=== PATIENT | female | born 1960 | race African-American/Black ===

== ENCOUNTER 2017-01-14 20:16 | Inpatient (IN) | payer OTHER ==
[~2017-01-14] VITALS: Ht 160 cm; Wt 65.8 kg
[~2017-01-14 20:16] MED LIST: ASPI81TA9 PO; HYDR-2762 PO; OMEP20TA PO
--- NOTE | 2017-01-14 20:54 | PHYS DOC ---
Past Medical History Past Medical History: Sciatica Past Surgical History: Hip Replacement Alcohol Use: Occasionally Drug Use: None Adult General Chief Complaint Chief Complaint: SHOULDER INJURY HPI HPI Patient is a 56 year old female with history of sciatica who presents with right upper extremity pain that began today after she fell. Patient states she had drunk 3 beers in 2 shots when she fell. She states she has history of sciatica and her left leg usually gives out which it did today. Review of Systems Review of Systems Constitutional: Denies fever or chills [] Eyes: Denies change in visual acuity, redness, or eye pain [] HENT: Denies nasal congestion or sore throat [] Respiratory: Denies cough or shortness of breath [] Cardiovascular: No additional information not addressed in HPI [] GI: Denies abdominal pain, nausea, vomiting, bloody stools or diarrhea [] : Denies dysuria or hematuria [] Musculoskeletal: Right upper extremity pain Integument: Denies rash or skin lesions [] Neurologic: Denies headache, focal weakness or sensory changes [] Endocrine: Denies polyuria or polydipsia [] Current Medications Current Medications Current Medications Medications (Trade) Dose Ordered Sig/Surjit Start Time Stop Time Status Last Admin Dose Admin Ketorolac Tromethamine (Toradol Im) 60 mg 1X ONCE 01/14/17 21:00 01/14/17 21:01 Cancel Allergies Allergies Allergies Coded Allergies Type Severity Reaction Last Updated Verified codeine Allergy Mild Rash 08/31/15 Yes Physical Exam Physical Exam Constitutional: Well developed, well nourished, no acute distress, non-toxic appearance. [] HENT: Normocephalic, atraumatic, bilateral external ears normal, oropharynx moist, no oral exudates, nose normal. [] Eyes: PERRLA, EOMI, conjunctiva normal, no discharge. [] Neck: Normal range of motion, no tenderness, supple, no stridor. [] Cardiovascular:Heart rate regular rhythm, no murmur [] Lungs & Thorax: Bilateral breath sounds clear to auscultation [] Abdomen: Bowel sounds normal, soft, no tenderness, no masses, no pulsatile masses. [] Skin: Warm, dry, no erythema, no rash. [] Back: No tenderness, no CVA tenderness. [] Extremities: Right shoulder appears obviously deformed. Crackly sounds could be heard when I palpated the shoulder. Patient unable to take the shoulder through any range of motion. +2 right radial pulse. Diffuse tenderness to the right forearm and hand. Limited range of motion to the forearm and hand due to pain. Adequate ulnar medial and radial sensation to the forearm and hand. Neurologic: Alert and oriented X 3, normal motor function, normal sensory function, no focal deficits noted. [] Psychologic: Affect normal, judgement normal, mood normal. [] Patient appears intoxicated. Current Patient Data Vital Signs Vital Signs Date Time Temp Pulse Resp B/P Pulse Ox O2 Delivery O2 Flow Rate FiO2 01/14/17 20:25 97.7 68 16 110/61 97 Room Air 97.7 EKG EKG [] Radiology/Procedures Radiology/Procedures []PROCEDURE Right shoulder two views HISTORY fall on shoulder, pain TECHNIQUE AP and Y-views were taken of the right shoulder COMPARISON None FINDINGS There is a displaced fracture of the surgical neck of the proximal humerus. There is rotation of the humeral head relative to the shaft and medial displacement of the shaft relative to the humeral head. The head is still in normal relationship to the glenoid. IMPRESSION 1. Displaced angulated fracture proximal right humerus. Electronically signed by: Italo Will MD (Jan 14, 2017 21:39:46) DICTATED and SIGNED BY: ITALO WILL MD DATE: 01/14/172138 CC: ELLYN LEYVA MD; JATIN ERAZO APRN ~ Course & Med Decision Making Course & Med Decision Making Pertinent Labs and Imaging studies reviewed. (See chart for details) Patient is in the ED with right upper extremity pain after falling. She had drunk 3 bottles of beer and 2 shots of hard liquor when she fell. She appears intoxicated right now. Her shoulder appears deformed. X-ray of the right humerus as interpreted by radiologist was noted for a displaced angulated fracture of proximal right humerus. X-rays of the right hand, forearm xrays interpreted by Dr. Pringle are negative for any acute findings. 21:[address] Briggs and she was admitted 21:[address] Fraire and he will f/u with patient inpatient. CT of the head is negative. Dragon Disclaimer Dragon Disclaimer This electronic medical record was generated, in whole or in part, using a voice recognition dictation system. Departure Departure Impression: Primary Impression: Fall Additional Impressions: Right humeral fracture ETOH abuse Disposition: 09 ADMITTED INPATIENT Admitting Physician: Eliz Briggs Referrals: ELLYN LEYVA MD (PCP) Problem Qualifiers Primary Impression: Fall Encounter type: initial encounter Qualified Code: W19.XXXA - Unspecified fall, initial encounter Additional Impressions: Right humeral fracture Encounter type: initial encounter Humerus Location: surgical neck Fracture type: closed Fracture morphology: unspecified fracture morphology Fracture alignment: displaced Qualified Code: S42.211A - Unspecified displaced fracture of surgical neck of right humerus, initial encounter for closed fracture JATIN ERAZO STAFF ACCOUNTANT Jan 14, 2017 20:54
[2017-01-14] MEDS ORDERED: KETOROLAC TROMETHAMINE 60 MG/2 ML INJ. IM ONE (21:00)
--- NOTE | 2017-01-14 21:41 | RAD ---
PROCEDURE Right shoulder two views HISTORY fall on shoulder, pain TECHNIQUE AP and Y-views were taken of the right shoulder COMPARISON None FINDINGS There is a displaced fracture of the surgical neck of the proximal humerus. There is rotation of the humeral head relative to the shaft and medial displacement of the shaft relative to the humeral head. The head is still in normal relationship to the glenoid. IMPRESSION 1. Displaced angulated fracture proximal right humerus. Electronically signed by: Italo Will MD (Jan 14, 2017 21:39:46)
[2017-01-14] MEDS ORDERED: FENTANYL PF 100 MCG/2 ML VIAL. IV ONE (22:00)
[2017-01-14] MEDS ORDERED: ONDANSETRON PF 4 MG/2 ML VIAL. IV PRN (22:15)
--- NOTE | 2017-01-14 22:22 | RAD ---
PROCEDURE CT brain without contrast. HISTORY pain after fall to head TECHNIQUE Axial CT images were obtained through the brain. One or more of the following individualized dose reduction techniques were utilized for this examination: 1. Automated exposure control; 2. Adjustment of the mA and/or kV according to patient size; 3. Use of iterative reconstruction technique.One or more of the following individualized dose reduction techniques were utilized for this examination: 1. Automated exposure control; 2. Adjustment of the mA and/or kV according to patient size; 3. Use of iterative reconstruction technique. COMPARISON None FINDINGS There is no intracranial hemorrhage or subdural hematoma. Ventricles are normal in size. There is no mass or shift of the midline. A skull fracture is not evident. Sinuses are clear. IMPRESSION 1. No intracranial hemorrhage or acute finding noted. Electronically signed by: Italo Will MD (Jan 14, 2017 22:20:55)
[2017-01-14 22:29] LABS: BILIRUBIN,URINE NEGATIVE (NEG); GLUCOSE,URINE NEGATIVE (NEG); NITRITE,URINE NEGATIVE (NEG); PH,URINE 5.5; PROTEIN,URINE NEGATIVE (NEG-TRACE); UROBILINOGEN,URINE 0.2 mg/dL (0.2 mg/dL)
[2017-01-14] MEDS ORDERED: LORAZEPAM 2 MG/ML VIAL. IV PRN ×2 (22:30)
[2017-01-14] MEDS ORDERED: IV NORMAL SALINE 1000ML BAG 1,000 ML IV ONE (22:30)
[2017-01-14] MEDS ORDERED: CLONIDINE HCL 0.1 MG TABLET PO PRN (22:30)
[2017-01-14] MEDS ORDERED: MULTIVIT INFUSN,ADULT 4,VIT K 10 ML, FOLIC ACID 1 MG, THIAMINE 100 MG in IV DEXTROSE 5 ... IV ONE (22:30)
[2017-01-14 22:35] LABS: BARBITURATES NEG (NEG); BENZODIAZEPINES NEG (NEG); CANNABINOIDS NEG (NEG); COCAINE NEG (NEG); METHADONE NEG (NEG); OPIATES NEG (NEG); PHENCYCLIDINE NEG (NEG)
[2017-01-14 22:38] LABS: BACTERIA,URINE MOD /HPF (0-FEW); RBC,URINE OCC /HPF (0-2); SQUAMOUS EPITHELIAL CELL,UR MOD /LPF
[2017-01-14 22:42] LABS: ETHANOL, URINE POS (NEG)
[2017-01-14 22:46] LABS: BASO % 0 % (0-3); EOS % 0 % (0-3); HEMATOCRIT 40.8 % (36.0-47.0); HEMOGLOBIN 13.4 g/dL (12.0-15.5); LYMPH # 1.2 x10^3/uL (1.0-4.8); LYMPH % 20 % (24-48); MEAN CORPUSCULAR HEMOGLOBIN 32 pg (25-35); MEAN CORPUSCULAR HGB CONC 33 g/dL (31-37); MEAN CORPUSCULAR VOLUME 99 fL (79-100); MONO % 4 % (0-9); NEUT % 76 % (31-73); PLATELET COUNT 154 x10^3/uL (140-400); RED BLOOD COUNT 4.12 x10^6/uL (3.50-5.40); RED CELL DISTRIBUTION WIDTH 13.5 % (11.5-14.5); WHITE BLOOD COUNT 6.2 x10^3/uL (4.0-11.0)
[2017-01-14 22:53] LABS: PROTHROMBIN TIME PATIENT 12.6 SEC (11.7-14.0)
[2017-01-14] MEDS: FENTANYL PF 100 MCG/2 ML VIAL. IV PRN ×2 (22:57→23:59)
[2017-01-14 23:02] LABS: CREATININE 0.6 mg/dL (0.6-1.0); GFR 124.7; POTASSIUM 3.1 mmol/L (3.5-5.1)
[2017-01-14 23:06] LABS: ALBUMIN 4.2 g/dL (3.4-5.0); ALBUMIN/GLOBULIN RATIO 1.3 (1.0-1.7); TOTAL BILIRUBIN 0.4 mg/dL (0.2-1.0); TOTAL PROTEIN 7.5 g/dL (6.4-8.2)
[2017-01-14 23:40] VITALS: BP 114/60
[2017-01-15] VITALS (9 sets, daily range): BP systolic 105–149; BP diastolic 42–77
--- NOTE | 2017-01-15 00:20 | ACF ---
Admission Forms Criteria MUSCULOSKELETAL DISEASE GRG Clinical Indications for Admission to Inpatient Care (Place 'X' for any and all applicable criteria): Hospital admission is needed for appropriate care of the patient because of 1 or more of the following: [X]I. Fracture, dislocation, or other musculoskeletal injury requiring inpatient care(medical) as indicated by 1 or more of the following(4)(5)(6)(7) [ ]a) Vertebral fracture requiring observation for instability or neurologic compromise (8) [ ]b) Compartment syndrome (proven or cannot be ruled out during observation level of care) (9) [ ]c) Limb-threatening injury [ ]d) Major injury requiring inpatient stabilization such as traction initiation or external fixation before internal fixation or closure of complex or open fracture [X]e) Major injury requiring inpatient treatment after emergency or observation level care (as appropriate) [ ]f) Severe pain requiring acute inpatient management [ ]g) Injury with suspicion of abuse or neglect (eg., child, dependent elderly) [ ]II. Newly diagnosed or suspected bone, joint, or orthopedic device infection (e.g., osteomyelitis, septic arthritis) needing 1 or more of the following(1)(2)(3) [ ]a) IV antibiotics that cannot be initiated in other than inpatient setting (e.g., patient too unstable or home infusion not available) [ ]b) Device removal or replacement [ ]c) Bone or soft tissue debridement [ ]d) Joint drainage (drain placement or repetitive aspirations) [ ]III. Severe rheumatologic disease (e.g., systemic lupus erythematosus, rheumatoid arthritis) with complications or comorbidities (Also use Optimal Recovery Care Criteria or General Recovery Criteria as appropriate on the basis of predominant condition), including 1 or more of the following( 10)(11)(12)(13) [ ]a) Severe infection (e.g., FITNESS STUDIES TEACHER infection, sepsis) (14) [ ]b) Respiratory complications, including 1 or more of the following : [ ]i) Pleural effusion with respiratory compromise [ ]ii) Pulmonary hypertension with congestive failure [ ]iii) Respiratory failure [ ]iv) Pulmonary hemorrhage (15) [ ]c) Hematologic disease, including 1 or more of the following: [ ]i) Coagulopathy with bleeding [ ]ii) Thrombosis with hypercoagulable state [ ]iii) Thrombotic thrombocytopenic purpura [ ]d) Cerebritis with seizures, psychosis, or other severe abnormalities [ ]e) Vertebral destruction with monitoring needed for cervical myelopathy& possible respiratory compromise [ ]f) Exacerbation that requires inpatient treatment (e.g., intravenous immunosuppression) (16) [ ]g) Acute renal failure [ ]h) Cerebritis with seizures, psychosis, Altered mental status, or other neurologic abnormalities [ ]i) Pericardial effusion with tamponade [ ]j) Vertebral destruction, with monitoring needed for cervical myelopathy and possible respiratory compromise [ ]IV. Severe vasculitis with complications or comorbidities (Also use Optimal Recovery Care Criteria General Recovery Criteria as appropriate on the basis of predominant condition), including 1 or more of the following(11)(12)(17)(18)(19)(20) [ ]a) Exacerbation that requires inpatient treatment (e.g., intravenous immunosuppression) (19)(21) [ ]b) Pulmonary hemorrhage (15) [ ]c) FITNESS STUDIES TEACHER vasculitis with seizures, psychosis, Altered mental status that is severe or persistent, or other severe abnormalities (22) [ ]d) Cerebral infarction [ ]e) Gastrointestinal ischemia [ ]f) Gangrene or threatened amputation [ ]g) Renal failure (16) [ ]h) Other significant complications of vasculitis ( eg., tissue or organ ischemia, organ dysfunction ) [ ]V. Severe myopathy as indicated by 1 or more of the following (28)(29) [ ]a) New onset of airway compromise or inability to swallow [ ]b) Respiratory deterioration with observation needed for impending respiratory failure [ ]c) Exacerbation that requires inpatient treatment (e.g., intravenous immunosuppression) [ ]. Severe crystal gout (arthropathy) indicated by 1 or more of the following (23)(24) [ ]a) Severe pain requiring acute inpatient management [ ]b) Exacerbation that requires inpatient treatment (e.g., intravenous treatment) [ ]VII.Rhabdomyolysis and 1 or more of the following (25)(26)(27) [ ]a) Acute renal failure [ ]b) Need for intravenous hydration after emergency or observation level care (as appropriate) [ ]c) Inability to maintain oral hydration [ ]d) Change in mental status [ ]e) Electrolyte abnormality that remains after emergency or observation level care (as appropriate) [ ]VIII Post amputation complication, as indicated by ANY ONE of the following [ ]a) Infection [ ]b) Dehiscence [ ]c) Myodesis failure [ ]IX. Severe pain requiring acute inpatient management due to musculoskeletal condition [ ]X. Musculoskeletal Disease and ALL of the following: [ ]a) Symptom or finding for which emergency and observation care have failed or are not considered appropriate (Use General Criteria: Observation Care as appropriate) [ ]b) Presence of ANY ONE of the following [ ]i) A General Admission Criteria [ ]ii) A Pediatric General Admission Criteria The original [facility] [employer] content created by [facility] [employer] has been revised. The portions of the content which have been revised are identified through the use of italic text or in bold, and [facility] has neither reviewed nor approved the modified material. All other unmodified content is copyright [facility]. Please see references footnoted in the original [facility] edition 2016 Admission Criteria Met?: Yes PATRICIA DIANE Jan 15, 2017 00:20
[2017-01-15] MEDS: FENTANYL PF 100 MCG/2 ML VIAL. IV PRN ×6 (05:11→23:51)
[2017-01-15] MEDS: POTASSIUM CL 20MEQ D5-0.45NACL 1,000 ML IV SCH ×2 (08:50→23:54)
[2017-01-15 09:05] LABS: CREATININE 0.5 mg/dL (0.6-1.0); GFR 153.9; POTASSIUM 3.3 mmol/L (3.5-5.1)
[2017-01-15] MEDS ORDERED: ONDANSETRON PF 4 MG/2 ML VIAL. IV PRN ×2 (09:30→11:45)
[2017-01-15] MEDS ORDERED: ACETAMINOPHEN 325 MG TABLET. PO PRN (09:30)
[2017-01-15] MEDS ORDERED: MORPHINE SULFATE 2 MG/ML DISP.SYRIN. IV PRN (09:30)
--- NOTE | 2017-01-15 09:38 | RAD ---
Three-view right hand radiographs 01/14/2017 Clinical history: Fall with injury to the right hand. PA, lateral and oblique digital radiographs of the right hand were obtained. No acute fracture or dislocation of the right hand is seen. No radiopaque foreign body is noted. A small bony density is seen distal to the ulnar styloid which may represent an old fracture versus a secondary center of ossification. Mild to moderate degenerative changes are seen involving the radiocarpal and midcarpal joint. Mild degenerative changes are seen scattered throughout the interphalangeal joints of the right hand. Impression: No fracture or dislocation of the right hand is seen.
--- NOTE | 2017-01-15 09:54 | RAD ---
AP and lateral right humerus radiographs 01/14/2017 Clinical history: Fall with injury to the right arm. AP and lateral digital radiographs of the right humerus were obtained. An acute transverse slightly comminuted fracture of the proximal diaphysis/metaphysis of the right humerus near the right humeral neck is seen. Mild overriding of the fracture fragments is seen. The major distal fracture fragment is displaced medially and anteriorly with posterior angulation. No dislocation is noted. Impression: Acute comminuted fracture of the proximal right humerus as outlined above.
--- NOTE | 2017-01-15 10:01 | RAD ---
AP and lateral right forearm radiographs 01/14/2017 Clinical history: Fall with injury to the right forearm. AP and lateral digital radiographs of the right forearm were obtained. No fracture or dislocation is seen. Mild degenerative changes are seen involving the right elbow joint. Impression: No fracture or dislocation of the right forearm is seen.
[2017-01-15] MEDS: POTASSIUM CHLORIDE 10MEQ 100 ML IV SCH ×2 (10:08→12:49)
[2017-01-15] MEDS ORDERED: IV RINGERS,LACTATED 1000ML 1,000 ML IV SCH (11:34)
[2017-01-15] MEDS ORDERED: LIDOCAINE 1% 1 ML SYRINGE. ID PRN (11:45)
[2017-01-15] MEDS ORDERED: FENTANYL PF 100 MCG/2 ML VIAL. IV PRN (11:45)
[2017-01-15] MEDS ORDERED: PROCHLORPERAZINE 10 MG/2 ML VIAL. IV PRN (11:45)
--- NOTE | 2017-01-15 12:07 | CONS ---
DATE OF CONSULTATION: 01/15/2017 REFERRING PROVIDER: Dr. Shayla Briggs. CONSULTING PROVIDER: Dr. tSanley Hills. REASON FOR CONSULTATION: Right proximal humerus fracture. CHIEF COMPLAINT: Right shoulder pain. HISTORY OF PRESENT ILLNESS: The patient is a very pleasant 56-year-old female who had a fall after drinking last night. She tells me she got up from a seated position and her left leg just gave out and causing her to fall onto her right side. She had had several drinks before this as well. She tells me that she has a past history significant for osteonecrosis and has had a right hip replacement and feels like she is probably due for a left side as well. She tells me that her shoulder pain is tolerable at rest. It hurts with any attempted range of motion in her arm. The pain does radiate down her arm, but is getting a little bit better. She denies any abnormal sensation in her hand or pain anywhere else other than her right shoulder and left hip. PAST MEDICAL HISTORY: Sciatica. PAST SURGICAL HISTORY: Right total hip arthroplasty. FAMILY HISTORY: Noncontributory. MEDICATIONS: Reviewed, please see MRAD. ALLERGIES: CODEINE. SOCIAL HISTORY: She does use alcohol frequently. Denies any tobacco. REVIEW OF SYSTEMS: Twelve-point review of systems is negative except as per HPI. PHYSICAL EXAMINATION: GENERAL: The patient is alert and oriented, no acute distress. Mood and affect are appropriate. She is examined lying in a hospital bed. HEENT: Normocephalic, atraumatic. Extraocular muscles are intact. CARDIOVASCULAR: Regular rate and rhythm. No edema in her lower extremities. LUNGS: Respirations are unlabored. Symmetric chest rise. ABDOMEN: Soft, nondistended. EXTREMITIES: Examination of bilateral lower extremities reveals incision over her right hip. She has a painful range of motion in her left hip and pain in her groin. No gross deformity. Examination of bilateral upper extremities reveals motor and sensation intact; median, radial, and ulnar nerves. Radial pulses 2+ bilaterally. No tenderness around her hand, wrist, or elbow on the right side. She is tender and has fullness around her right proximal humerus and shoulder girdle. Right upper extremity is in a sling. IMAGING: X-rays are reviewed. Shoulder and humerus x-rays were interpreted by myself. Report was also reviewed. She has a displaced right proximal humerus fracture. A head CT report was reviewed. No sign of any acute finding. IMPRESSION: 1. Closed displaced right proximal humerus fracture. PLAN: I did discuss the risks, benefits, alternatives with the surgical intervention and pros and cons of surgery versus nonoperative treatment. She is uncertain if she would like to proceed with surgery. She did tell me that she would like to discuss this with her family, which I think is reasonable. I did recommend surgery and spent approximately 12 minutes just discussing pros and cons of operative versus nonoperative treatment with her. We will await her decision and tentatively plan on surgery later this afternoon. Her potassium was low below and I did order for a repeat BMP prior to surgery. STANLEY HILLS MD DR: SALMA/diana JOB#: [id number] / [id number] HUGH
--- NOTE | 2017-01-15 12:50 | PDOC1 ---
History and Physical Date of Admission Date of Admission 01/14/17 Identification/Chief Complaint Chief Complaint fall Problems: Source Source: Chart review, Patient History of Present Illness History of Present Illness HPI HPI Patient is a 56 year old female with history of sciatica who presents with right upper extremity pain last night. She drinks 2 beers 5 times a week, and drank yesterday, as per ER NURSE, pt was drunk yesterday. She was going to bathroom from her bedroom, fell on the floor of bedroom, didnot hid head, no syncope. hit right side of her body. XR showed right humerus fx. She states she has history of sciatica and her left leg usually gives out which it did today. Past Medical History Cardiovascular: No pertinent hx Pulmonary: No pertinent hx CENTRAL NERVOUS SYSTEM: Other GI: No pertinent hx Heme/Onc: No pertinent hx Hepatobiliary: No pertinent hx Rheumatologic: No pertinent hx Infectious disease: No pertinent hx Renal/: No pertinent hx Endocrine: No pertinent hx Past Surgical History Past Surgical History: Total hip replacement, Tubal Ligation, Other Family History Family History: Coronary Artery Disease Social History Smoke: 1 pack per day ALCOHOL: heavy Drugs: None Current Problem List Problem List Problems Medical Problems: (1) Fall Status: Acute (2) Right humeral fracture Status: Acute Current Medications Current Medications Current Medications Medications (Trade) Dose Ordered Sig/Surjit Start Time Stop Time Status Last Admin Dose Admin Acetaminophen (Tylenol) 650 mg PRN Q6HRS PRN 01/15/17 09:30 Acetaminophen/ Hydrocodone Bitart 1 tab 1 tab PRN Q4HRS PRN 01/15/17 09:30 Cefazolin Sodium (Ancef 1gm Ivpb For Omni) 50 ml @ 100 mls/hr 1X ONCE 01/16/17 06:00 01/16/17 06:29 Clonidine HCl 0.1 mg 0.1 mg PRN Q1HR PRN 01/14/17 22:30 Fentanyl Citrate (Fentanyl 2ml Vial) 25 mcg PRN Q5MIN PRN 01/15/17 11:45 01/16/17 11:44 Fentanyl Citrate 50 mcg 50 mcg PRN Q5MIN PRN 01/15/17 11:45 01/16/17 11:44 Ketorolac Tromethamine (Toradol Im) 60 mg 1X ONCE 01/14/17 21:00 01/14/17 21:01 Cancel Lactated Ringer's (Iv Lactated Ringers) 1,000 ml @ 30 mls/hr Q24H 01/15/17 11:34 01/15/17 23:33 Lidocaine HCl 2 ml PRN 1X PRN 01/15/17 11:45 01/16/17 11:44 Lorazepam (Ativan) 4 mg PRN Q1HR PRN 01/14/17 22:30 Morphine Sulfate 4 mg PRN Q2HR PRN 01/15/17 09:30 Multivitamins 10 ml/Folic Acid 1 mg/Thiamine HCl 100 mg/Dextrose/ Sodium Chloride 1,011.2 ml @ 1,000 mls/ hr 1X ONCE 01/14/17 22:30 01/14/17 23:30 DC 01/14/17 23:19 1,000 MLS/HR Ondansetron HCl (Zofran) 4 mg PRN Q6HRS PRN 01/15/17 11:45 01/16/17 11:44 Ondansetron HCl 4 mg 4 mg PRN Q8HRS PRN 01/14/17 22:15 01/15/17 22:14 Potassium Chloride/Dextrose/ Sod Cl 1,000 ml @ 75 mls/hr [id number] 01/15/17 08:15 01/15/17 08:50 75 MLS/HR Potassium Chloride (KCl Premix 10meq) 100 ml @ 100 mls/hr Q1H 01/15/17 10:00 01/15/17 11:59 DC 01/15/17 10:08 100 MLS/HR Prochlorperazine Edisylate (Compazine) 5 mg PACU PRN PRN 01/15/17 11:45 01/16/17 11:44 Sodium Chloride (Iv Sodium Chloride 0.9% 1000ml Bag) 1,000 ml @ 125 mls/hr 1X ONCE 01/14/17 22:30 01/15/17 06:29 DC 01/14/17 23:16 125 MLS/HR Allergies Allergies Allergies Coded Allergies Type Severity Reaction Last Updated Verified codeine Allergy Mild Rash 08/31/15 Yes ROS Review of System CONSTITUTIONAL: No fever or chills EYES: No recent changes SKIN: No rash or itching CARDIOVASCULAR: No chest pain, syncope, palpitations, or edema RESPIRATORY: No SOB or cough GASTROINTESTINAL: No nausea, vomiting or abdominal pain NEUROLOGICAL: No headaches or weakness ENDOCRINE: No cold or heat intolerance GENITOURINARY: No urgency or frequency of urination MUSCULOSKELETAL: No back pain or joint pain LYMPHATICS: No enlarged lymph nodes PSYCHIATRIC: No anxiety or depression Physical Exam Physical Exam GEN.: No apparent distress. Alert and oriented. HEENT: Head is normocephalic, atraumatic NECK: Supple. LUNGS: Clear to auscultation. HEART: RRR, S1, S2 present. Peripheral pulses intact ABDOMEN: Soft, nontender. Positive bowel sounds. EXTREMITIES: Without any cyanosis. right upper ext has sling on. fingers are ok, warm. NEUROLOGIC: Normal speech, normal tone PSYCHIATRIC: Normal affect, normal mood. SKIN: No ulcerations Vitals Vitals Vital Signs Date Time Temp Pulse Resp B/P Pulse Ox O2 Delivery O2 Flow Rate FiO2 01/15/17 11:00 98.1 53 18 134/70 99 Room Air 98.1 Labs Labs Laboratory Tests Test 01/14/17 22:19 01/14/17 22:30 01/15/17 08:37 Urine Collection Type Unknown Urine Color Yellow Urine Clarity Clear Urine pH 5.5 Urine Specific [place] 1.010 Urine Protein Negativemg/dL (NEG-TRACE) Urine Glucose (UA) Negativemg/dL (NEG) Urine Ketones (Stick) Negativemg/dL (NEG) Urine Blood Negative (NEG) Urine Nitrite Negative (NEG) Urine Bilirubin Negative (NEG) Urine Urobilinogen Dipstick 0.2mg/dL (0.2 mg/dL) Urine Leukocyte Esterase Negative (NEG) Urine RBC Occ/HPF (0-2) Urine WBC 1-4/HPF (0-4) Urine Squamous Epithelial Cells Mod/LPF Urine Bacteria Mod/HPF (0-FEW) Urine Opiates Screen Neg (NEG) Urine Methadone Screen Neg (NEG) Urine Barbiturates Neg (NEG) Urine Phencyclidine Screen Neg (NEG) Urine Amphetamine/Methamphetamine Neg (NEG) Urine Benzodiazepines Screen Neg (NEG) Urine Cocaine Screen Neg (NEG) Urine Cannabinoids Screen Neg (NEG) Urine Ethyl Alcohol Pos (NEG) White Blood Count 6.2x10^3/uL (4.0-11.0) Red Blood Count 4.12x10^6/uL (3.50-5.40) Hemoglobin 13.4g/dL (12.0-15.5) Hematocrit 40.8% (36.0-47.0) Mean Corpuscular Volume 99fL (79-100) Mean Corpuscular Hemoglobin 32pg (25-35) Mean Corpuscular Hemoglobin Concent 33g/dL (31-37) Red Cell Distribution Width 13.5% (11.5-14.5) Platelet Count 154x10^3/uL (140-400) Neutrophils (%) (Auto) 76% (31-73) Lymphocytes (%) (Auto) 20% (24-48) Monocytes (%) (Auto) 4% (0-9) Eosinophils (%) (Auto) 0% (0-3) Basophils (%) (Auto) 0% (0-3) Neutrophils # (Auto) 4.7x10^3uL (1.8-7.7) Lymphocytes # (Auto) 1.2x10^3/uL (1.0-4.8) Monocytes # (Auto) 0.2x10^3/uL (0.0-1.1) Eosinophils # (Auto) 0.0x10^3/uL (0.0-0.7) Basophils # (Auto) 0.0x10^3/uL (0.0-0.2) Prothrombin Time 12.6SEC (11.7-14.0) Prothromb Time International Ratio 1.0 (0.8-1.1) Activated Partial Thromboplast Time 23SEC (24-38) Sodium Level 140mmol/L (136-145) 144mmol/L (136-145) Potassium Level 3.1mmol/L (3.5-5.1) 3.3mmol/L (3.5-5.1) Chloride Level 101mmol/L (98-107) 108mmol/L (98-107) Carbon Dioxide Level 22mmol/L (21-32) 25mmol/L (21-32) Anion Gap 17 (6-14) 11 (6-14) Blood Urea Nitrogen 9mg/dL (7-20) 7mg/dL (7-20) Creatinine 0.6mg/dL (0.6-1.0) 0.5mg/dL (0.6-1.0) Estimated GFR (Cockcroft-Gault) 124.7 153.9 BUN/Creatinine Ratio 15 (6-20) Glucose Level 127mg/dL (70-99) 95mg/dL (70-99) Calcium Level 9.0mg/dL (8.5-10.1) 8.0mg/dL (8.5-10.1) Total Bilirubin 0.4mg/dL (0.2-1.0) Aspartate Amino Transf (AST/SGOT) 19U/L (15-37) Alanine Aminotransferase (ALT/SGPT) 26U/L (14-59) Alkaline Phosphatase 92U/L (46-116) Total Protein 7.5g/dL (6.4-8.2) Albumin 4.2g/dL (3.4-5.0) Albumin/Globulin Ratio 1.3 (1.0-1.7) Ethyl Alcohol Level 296mg/dL (0-10) Laboratory Tests Test 01/14/17 22:19 01/14/17 22:30 01/15/17 08:37 Urine Collection Type Unknown Urine Color Yellow Urine Clarity Clear Urine pH 5.5 Urine Specific [place] 1.010 Urine Protein Negativemg/dL (NEG-TRACE) Urine Glucose (UA) Negativemg/dL (NEG) Urine Ketones (Stick) Negativemg/dL (NEG) Urine Blood Negative (NEG) Urine Nitrite Negative (NEG) Urine Bilirubin Negative (NEG) Urine Urobilinogen Dipstick 0.2mg/dL (0.2 mg/dL) Urine Leukocyte Esterase Negative (NEG) Urine RBC Occ/HPF (0-2) Urine WBC 1-4/HPF (0-4) Urine Squamous Epithelial Cells Mod/LPF Urine Bacteria Mod/HPF (0-FEW) Urine Opiates Screen Neg (NEG) Urine Methadone Screen Neg (NEG) Urine Barbiturates Neg (NEG) Urine Phencyclidine Screen Neg (NEG) Urine Amphetamine/Methamphetamine Neg (NEG) Urine Benzodiazepines Screen Neg (NEG) Urine Cocaine Screen Neg (NEG) Urine Cannabinoids Screen Neg (NEG) Urine Ethyl Alcohol Pos (NEG) White Blood Count 6.2x10^3/uL (4.0-11.0) Red Blood Count 4.12x10^6/uL (3.50-5.40) Hemoglobin 13.4g/dL (12.0-15.5) Hematocrit 40.8% (36.0-47.0) Mean Corpuscular Volume 99fL (79-100) Mean Corpuscular Hemoglobin 32pg (25-35) Mean Corpuscular Hemoglobin Concent 33g/dL (31-37) Red Cell Distribution Width 13.5% (11.5-14.5) Platelet Count 154x10^3/uL (140-400) Neutrophils (%) (Auto) 76% (31-73) Lymphocytes (%) (Auto) 20% (24-48) Monocytes (%) (Auto) 4% (0-9) Eosinophils (%) (Auto) 0% (0-3) Basophils (%) (Auto) 0% (0-3) Neutrophils # (Auto) 4.7x10^3uL (1.8-7.7) Lymphocytes # (Auto) 1.2x10^3/uL (1.0-4.8) Monocytes # (Auto) 0.2x10^3/uL (0.0-1.1) Eosinophils # (Auto) 0.0x10^3/uL (0.0-0.7) Basophils # (Auto) 0.0x10^3/uL (0.0-0.2) Prothrombin Time 12.6SEC (11.7-14.0) Prothromb Time International Ratio 1.0 (0.8-1.1) Activated Partial Thromboplast Time 23SEC (24-38) Sodium Level 140mmol/L (136-145) 144mmol/L (136-145) Potassium Level 3.1mmol/L (3.5-5.1) 3.3mmol/L (3.5-5.1) Chloride Level 101mmol/L (98-107) 108mmol/L (98-107) Carbon Dioxide Level 22mmol/L (21-32) 25mmol/L (21-32) Anion Gap 17 (6-14) 11 (6-14) Blood Urea Nitrogen 9mg/dL (7-20) 7mg/dL (7-20) Creatinine 0.6mg/dL (0.6-1.0) 0.5mg/dL (0.6-1.0) Estimated GFR (Cockcroft-Gault) 124.7 153.9 BUN/Creatinine Ratio 15 (6-20) Glucose Level 127mg/dL (70-99) 95mg/dL (70-99) Calcium Level 9.0mg/dL (8.5-10.1) 8.0mg/dL (8.5-10.1) Total Bilirubin 0.4mg/dL (0.2-1.0) Aspartate Amino Transf (AST/SGOT) 19U/L (15-37) Alanine Aminotransferase (ALT/SGPT) 26U/L (14-59) Alkaline Phosphatase 92U/L (46-116) Total Protein 7.5g/dL (6.4-8.2) Albumin 4.2g/dL (3.4-5.0) Albumin/Globulin Ratio 1.3 (1.0-1.7) Ethyl Alcohol Level 296mg/dL (0-10) VTE Prophylaxis Ordered VTE Prophylaxis Devices: Yes VTE Pharmacological Prophylaxi: No Assessment/Plan Assessment/Plan 1. traumatic right humerus fx post fall 2. alcoholism 3. tobaccoism 4. hypokalemia 5. sciatica plan: fu with ortho, waiting for pt to discuss with family and should get sx done today replete K IVF NPO for now dvt ppx, ptot tmr ativan prn vitamins LUIS ANTONIO ARTEAGA MD Jan 15, 2017 12:50
[2017-01-15] MEDS: MORPHINE SULFATE 4 MG/ML DISP.SYRIN. IV PRN (12:54)
[2017-01-15] MEDS: THIAMINE 100 MG TABLET. PO SCH (13:00)
[2017-01-15] MEDS: FOLIC ACID 1 MG TABLET. PO SCH (13:00)
[2017-01-15] MEDS ORDERED: DEXAMETHASONE SOD PHOS 20 MG/5 ML VIAL. ONE (13:46)
[2017-01-15] MEDS ORDERED: PROPOFOL 20 ML IV ONE (13:46)
[2017-01-15] MEDS ORDERED: ONDANSETRON PF 4 MG/2 ML VIAL. ONE (13:46)
[2017-01-15] MEDS ORDERED: FENTANYL PF 100 MCG/2 ML VIAL. ONE ×2 (13:46→16:04)
[2017-01-15] MEDS ORDERED: ROCURONIUM 50 MG/5 ML VIAL. ONE (13:46)
[2017-01-15] MEDS ORDERED: MIDAZOLAM HCL/PF 2 MG/2 ML VIAL. ONE (13:46)
[2017-01-15] MEDS ORDERED: LIDOCAINE 2% 100 MG/5 ML SYRINGE. ONE (13:46)
[2017-01-15] MEDS ORDERED: PHENYLEPHRINE 10 MG/ML VIAL. ONE (13:49)
[2017-01-15] MEDS ORDERED: CEFAZOLIN 1GM IVPB FOR OMNI 50 ML IV ONE ×2 (14:30→14:34)
--- NOTE | 2017-01-15 15:15 | PDOC ---
BRIEF OPERATIVE NOTE Date: Jan 15, 2017 Pre-Op Diagnosis Closed, displaced, malangulated R prox humerus fx Post-Op Diagnosis same Procedure Performed CRIMN R prox humerus fx Surgeon Yee Home Service Advisor [place] Anesthesiologist [place] Anesthesia Type: General Blood Loss 50mL Complications none RENEE HILLS II, MD Jan 15, 2017 15:15
[2017-01-15] MEDS ORDERED: BUPIVACAINE MPF 0.5% 30 ML VIAL. ONE (15:26)
[2017-01-15] MEDS ORDERED: LIDOCAINE 1% PF 30 ML VIAL. ONE (15:26)
[2017-01-15] MEDS ORDERED: ACETAMINOPHEN INTRAVENOUS 100 ML IV ONE ×2 (15:32→16:00)
[2017-01-15] MEDS ORDERED: NEOSTIGMINE METHYLSULFATE 5 MG/5 ML SYRINGE. ONE (16:48)
[2017-01-15] MEDS ORDERED: GLYCOPYRROLATE 1 MG/5 ML VIAL. ONE (16:48)
[2017-01-15] MEDS ORDERED: SEVOFLURANE > 120 MINUTES. IH ONE (17:05)
[2017-01-15] MEDS: CEFAZOLIN SODIUM 1 GM in IV NORMAL SALINE 50ML 50 ML IV SCH (20:09)
--- NOTE | 2017-01-15 22:56 | OP ---
DATE OF SURGERY: 01/15/2017 SURGEON: Stanley Hills MD FOOD SAFETY SPECIALIST: Denise Clement. ANESTHESIA: General. PREOPERATIVE DIAGNOSIS: Closed right displaced malangulated surgical neck proximal humerus fracture. POSTOPERATIVE DIAGNOSIS: Closed right displaced malangulated surgical neck proximal humerus fracture. PROCEDURE PERFORMED: Closed reduction, intramedullary nailing of right proximal humerus fracture. COMPLICATIONS: None. ESTIMATED BLOOD LOSS: 50 mL COMPONENTS INSERTED: Marie and Nephew 8/7 x 16 Trigen proximal bend humeral nail with proximal and distal interlocking screws. REASON FOR PROCEDURE: The patient is a very pleasant 56-year-old female who suffered a fall while intoxicated last night and was admitted to the hospitalist service after presenting to our Emergency Department with complaints of pain and inability to move around. For details, please see my full dictated consult note. Because of pain and inability to move around as well as the fracture pattern, I had a discussion of the risks, benefits, alternatives to the above surgery with her and she elected to proceed. DESCRIPTION OF PROCEDURE: The patient was greeted in the preoperative area by myself where the correct extremity was marked and verified. She was taken to the operative suite and antibiotics were started en route. Once in the OR, she had successful induction of general anesthesia on the hospital bed and was transferred gently supine to the OR table. We then placed a large pad under her legs and set her up in a beach chair position and maintained her C-spine in neutral position. She was secured to the bed. I then brought in C-arm and performed a closed reduction maneuver consisting of gentle traction and a laterally directed force at the humeral shaft as well as slight external rotation and after making some adjustments, I was confident I could achieve a good reduction intraoperatively. We therefore proceeded to prep and drape the right upper extremity in our usual sterile fashion and then conducted our standard preoperative timeout. I then palpated, marked surface anatomy, made my standard 6 cm incision of the anterior portion of her acromion parallel to its lateral border, dissected subcutaneous tissue with electrocautery, identified bleeders. I then used Shelly and picksherri to identify the deltoid raphe and split this with a [place] elevator. I then entered the subacromial space and noted immediate extravasation of fracture hematoma and not blood. I therefore bluntly dissected around to free up any adhesions and noted an approximately 1 cm in diameter and minimally retracted supraspinatus rotator cuff tear. I then identified the supraspinatus muscle fibers and gently split these with a [place] and then placed the rotator cuff retracted from the Marie and Nephew humeral nail set. I then used C-arm to localize my most appropriate starting position with my 3.2 guidewire and then advanced my guidewire down. After this, I gained entry and reamed on hand. I then used my finger device to enter the humeral canal and rotated it to try to bring the fracture into a slightly better alignment; however, I felt this did not necessarily help and the fracture was pretty well reduced already. I then inserted my long guidewire and took biplanar fluoroscopic imaging distally to ensure it was in the canal. I then began reaming from a 6 to an 8 distally and a 9 proximally. I then assembled my nail in the back table and advanced it using fluoroscopic guidance proximally to ensure appropriate seated depth. After this, I began placing my locking screws and started with the lateral locking screw followed by proximally followed by the 2 lateral ones distally. I then placed my oblique screws followed by my anterior, posterior screw. I was liberal with fluoroscopic assistance. After this, I then detached the insertion handle for the nail after confirming I maintained hardware position and good reduction. I then inspected the rotator cuff tendon. Because of the involvement of the lateral cortex proximally, I opted just for a [id number] repair at the supraspinatus as she still had a good tendon laterally. I then repaired the small split I had created as well. I used a #2 Ethibond for these sutures. After this, the operative area was thoroughly irrigated. I injected approximately 30 mL of local anesthetic mixture into the tj-incisional areas in the subacromial space. I then closed the deltoid fascia after bluntly feeling to make sure the subdeltoid space was free of any adhesions. I used a simple interrupted 0 Vicryl for this. Inverted interrupted 2-0 was used for my lateral incision followed by axel for the skin at all the incisions. Prior to accomplishing wound closure, all counts were reported as correct x 2. No complications. Postop plan is to begin the patient on physical therapy, active assisted for elevation to 90 and external rotation to neutral. She is to be nonweightbearing x 6 weeks. We will readmit her under the care of the hospitalist. When she is comfortable, she can be discharged home. We will maintain her on postoperative antibiotic prophylaxis. At the conclusion of surgery, she was awakened and laid supine. She was then transferred extubated to the hospital bed and taken to PACU in stable and extubated condition. STANLEY HILLS MD DR: SALMA/diana JOB#: [id number] / [id number] HUGH
[2017-01-15] MEDS: HYDROCODONE/APAP 5/325MG TABLET. PO PRN (23:52)
[2017-01-16] MEDS: CEFAZOLIN SODIUM 1 GM in IV NORMAL SALINE 50ML 50 ML IV SCH ×2 (03:09→08:25)
[2017-01-16] MEDS: FENTANYL PF 100 MCG/2 ML VIAL. IV PRN (03:09)
[2017-01-16 03:24] VITALS: BP 109/70
[2017-01-16 06:00] LABS: BASO % 0 % (0-3); EOS % 0 % (0-3); HEMATOCRIT 32.8 % (36.0-47.0); HEMOGLOBIN 11.2 g/dL (12.0-15.5); LYMPH # 0.7 x10^3/uL (1.0-4.8); LYMPH % 13 % (24-48); MEAN CORPUSCULAR HEMOGLOBIN 33 pg (25-35); MEAN CORPUSCULAR HGB CONC 34 g/dL (31-37); MEAN CORPUSCULAR VOLUME 96 fL (79-100); MONO % 9 % (0-9); NEUT % 78 % (31-73); PLATELET COUNT 133 x10^3/uL (140-400); RED CELL DISTRIBUTION WIDTH 13.9 % (11.5-14.5); WHITE BLOOD COUNT 5.7 x10^3/uL (4.0-11.0)
[2017-01-16 06:25] LABS: CREATININE 0.6 mg/dL (0.6-1.0); GFR 124.7; POTASSIUM 3.9 mmol/L (3.5-5.1)
[2017-01-16 06:57] LABS: CALCIUM 8.2 mg/dL (8.5-10.1)
[2017-01-16 07:00] VITALS: BP 123/58
[2017-01-16] MEDS: MORPHINE SULFATE 4 MG/ML DISP.SYRIN. IV PRN (08:17)
[2017-01-16] MEDS: THIAMINE 100 MG TABLET. PO SCH (08:17)
[2017-01-16] MEDS: FOLIC ACID 1 MG TABLET. PO SCH (08:18)
[2017-01-16] MEDS: HYDROCODONE/APAP 5/325MG TABLET. PO PRN ×4 (09:19→22:52)
--- NOTE | 2017-01-16 09:38 | PDOC ---
ORTHO PROGRESS NOTES Subjective Pain doing ok, worse with movement. No other complaints Vitals Vital Signs Date Time Temp Pulse Resp B/P Pulse Ox O2 Delivery O2 Flow Rate FiO2 01/16/17 09:19 Room Air 01/16/17 07:00 96.9 79 20 123/58 98 96.9 Labs Laboratory Tests Test 01/14/17 22:19 01/14/17 22:30 01/15/17 08:37 01/16/17 05:05 Urine Collection Type Unknown Urine Color Yellow Urine Clarity Clear Urine pH 5.5 Urine Specific [place] 1.010 Urine Protein Negativemg/dL (NEG-TRACE) Urine Glucose (UA) Negativemg/dL (NEG) Urine Ketones (Stick) Negativemg/dL (NEG) Urine Blood Negative (NEG) Urine Nitrite Negative (NEG) Urine Bilirubin Negative (NEG) Urine Urobilinogen Dipstick 0.2mg/dL (0.2 mg/dL) Urine Leukocyte Esterase Negative (NEG) Urine RBC Occ/HPF (0-2) Urine WBC 1-4/HPF (0-4) Urine Squamous Epithelial Cells Mod/LPF Urine Bacteria Mod/HPF (0-FEW) Urine Opiates Screen Neg (NEG) Urine Methadone Screen Neg (NEG) Urine Barbiturates Neg (NEG) Urine Phencyclidine Screen Neg (NEG) Urine Amphetamine/Methamphetamine Neg (NEG) Urine Benzodiazepines Screen Neg (NEG) Urine Cocaine Screen Neg (NEG) Urine Cannabinoids Screen Neg (NEG) Urine Ethyl Alcohol Pos (NEG) White Blood Count 6.2x10^3/uL (4.0-11.0) 5.7x10^3/uL (4.0-11.0) Red Blood Count 4.12x10^6/uL (3.50-5.40) 3.40x10^6/uL (3.50-5.40) Hemoglobin 13.4g/dL (12.0-15.5) 11.2g/dL (12.0-15.5) Hematocrit 40.8% (36.0-47.0) 32.8% (36.0-47.0) Mean Corpuscular Volume 99fL (79-100) 96fL (79-100) Mean Corpuscular Hemoglobin 32pg (25-35) 33pg (25-35) Mean Corpuscular Hemoglobin Concent 33g/dL (31-37) 34g/dL (31-37) Red Cell Distribution Width 13.5% (11.5-14.5) 13.9% (11.5-14.5) Platelet Count 154x10^3/uL (140-400) 133x10^3/uL (140-400) Neutrophils (%) (Auto) 76% (31-73) 78% (31-73) Lymphocytes (%) (Auto) 20% (24-48) 13% (24-48) Monocytes (%) (Auto) 4% (0-9) 9% (0-9) Eosinophils (%) (Auto) 0% (0-3) 0% (0-3) Basophils (%) (Auto) 0% (0-3) 0% (0-3) Neutrophils # (Auto) 4.7x10^3uL (1.8-7.7) 4.5x10^3uL (1.8-7.7) Lymphocytes # (Auto) 1.2x10^3/uL (1.0-4.8) 0.7x10^3/uL (1.0-4.8) Monocytes # (Auto) 0.2x10^3/uL (0.0-1.1) 0.5x10^3/uL (0.0-1.1) Eosinophils # (Auto) 0.0x10^3/uL (0.0-0.7) 0.0x10^3/uL (0.0-0.7) Basophils # (Auto) 0.0x10^3/uL (0.0-0.2) 0.0x10^3/uL (0.0-0.2) Prothrombin Time 12.6SEC (11.7-14.0) Prothromb Time International Ratio 1.0 (0.8-1.1) Activated Partial Thromboplast Time 23SEC (24-38) Sodium Level 140mmol/L (136-145) 144mmol/L (136-145) 139mmol/L (136-145) Potassium Level 3.1mmol/L (3.5-5.1) 3.3mmol/L (3.5-5.1) 3.9mmol/L (3.5-5.1) Chloride Level 101mmol/L (98-107) 108mmol/L (98-107) 104mmol/L (98-107) Carbon Dioxide Level 22mmol/L (21-32) 25mmol/L (21-32) 24mmol/L (21-32) Anion Gap 17 (6-14) 11 (6-14) 11 (6-14) Blood Urea Nitrogen 9mg/dL (7-20) 7mg/dL (7-20) 6mg/dL (7-20) Creatinine 0.6mg/dL (0.6-1.0) 0.5mg/dL (0.6-1.0) 0.6mg/dL (0.6-1.0) Estimated GFR (Cockcroft-Gault) 124.7 153.9 124.7 BUN/Creatinine Ratio 15 (6-20) Glucose Level 127mg/dL (70-99) 95mg/dL (70-99) 130mg/dL (70-99) Calcium Level 9.0mg/dL (8.5-10.1) 8.0mg/dL (8.5-10.1) 8.2mg/dL (8.5-10.1) Total Bilirubin 0.4mg/dL (0.2-1.0) Aspartate Amino Transf (AST/SGOT) 19U/L (15-37) Alanine Aminotransferase (ALT/SGPT) 26U/L (14-59) Alkaline Phosphatase 92U/L (46-116) Total Protein 7.5g/dL (6.4-8.2) Albumin 4.2g/dL (3.4-5.0) Albumin/Globulin Ratio 1.3 (1.0-1.7) Ethyl Alcohol Level 296mg/dL (0-10) Laboratory Tests Test 01/16/17 05:05 White Blood Count 5.7x10^3/uL (4.0-11.0) Red Blood Count 3.40x10^6/uL (3.50-5.40) Hemoglobin 11.2g/dL (12.0-15.5) Hematocrit 32.8% (36.0-47.0) Mean Corpuscular Volume 96fL (79-100) Mean Corpuscular Hemoglobin 33pg (25-35) Mean Corpuscular Hemoglobin Concent 34g/dL (31-37) Red Cell Distribution Width 13.9% (11.5-14.5) Platelet Count 133x10^3/uL (140-400) Neutrophils (%) (Auto) 78% (31-73) Lymphocytes (%) (Auto) 13% (24-48) Monocytes (%) (Auto) 9% (0-9) Eosinophils (%) (Auto) 0% (0-3) Basophils (%) (Auto) 0% (0-3) Neutrophils # (Auto) 4.5x10^3uL (1.8-7.7) Lymphocytes # (Auto) 0.7x10^3/uL (1.0-4.8) Monocytes # (Auto) 0.5x10^3/uL (0.0-1.1) Eosinophils # (Auto) 0.0x10^3/uL (0.0-0.7) Basophils # (Auto) 0.0x10^3/uL (0.0-0.2) Sodium Level 139mmol/L (136-145) Potassium Level 3.9mmol/L (3.5-5.1) Chloride Level 104mmol/L (98-107) Carbon Dioxide Level 24mmol/L (21-32) Anion Gap 11 (6-14) Blood Urea Nitrogen 6mg/dL (7-20) Creatinine 0.6mg/dL (0.6-1.0) Estimated GFR (Cockcroft-Gault) 124.7 Glucose Level 130mg/dL (70-99) Calcium Level 8.2mg/dL (8.5-10.1) Notes A and A In bed RUE: in sling m/s intact m/r/u Assessment and Plan POD 1 CRIMN R prox humerus fx PT/OT home when comfortable f/u with myself in 2 wks RENEE HILLS II, MD Jan 16, 2017 09:38
[2017-01-16] MEDS ORDERED: HYDROCODONE/APAP 5/325MG TABLET. PO PRN (10:00)
--- NOTE | 2017-01-16 10:03 | PDOC ---
PROGRESS NOTES Chief Complaint Chief Complaint Traumatic right humerus fx post fall ASSESSMENT AND PLAN: 1. R humerus fx: s/p fixation yesterday. ok to D/C from ortho [facility] 2. Pain control: d/w pt - switch to PO away from IV 3. Hypokalemia: resolved. monitor 4. Alcoholism: suppl vitamins, ativan PRN for W/D prevention 5. Tobaccoism: on patch 6. Dispo: anticipate home in AM History of Present Illness History of Present Illness arm pain improving. no c/o of sciatic currently. no tremors. no SLAUGHTER, dizziness or SOB Vitals Vitals Vital Signs Date Time Temp Pulse Resp B/P Pulse Ox O2 Delivery O2 Flow Rate FiO2 01/16/17 09:19 Room Air 01/16/17 07:00 96.9 79 20 123/58 98 96.9 Physical Exam General: Alert, Oriented X3, Cooperative Heart: Regular rate Lungs: Clear Abdomen: Normal bowel sounds, Soft, No tenderness Extremities: No edema, Other (R arm in sling) Skin: No rashes Labs LABS Laboratory Tests Test 01/16/17 05:05 White Blood Count 5.7x10^3/uL (4.0-11.0) Red Blood Count 3.40x10^6/uL (3.50-5.40) Hemoglobin 11.2g/dL (12.0-15.5) Hematocrit 32.8% (36.0-47.0) Mean Corpuscular Volume 96fL (79-100) Mean Corpuscular Hemoglobin 33pg (25-35) Mean Corpuscular Hemoglobin Concent 34g/dL (31-37) Red Cell Distribution Width 13.9% (11.5-14.5) Platelet Count 133x10^3/uL (140-400) Neutrophils (%) (Auto) 78% (31-73) Lymphocytes (%) (Auto) 13% (24-48) Monocytes (%) (Auto) 9% (0-9) Eosinophils (%) (Auto) 0% (0-3) Basophils (%) (Auto) 0% (0-3) Neutrophils # (Auto) 4.5x10^3uL (1.8-7.7) Lymphocytes # (Auto) 0.7x10^3/uL (1.0-4.8) Monocytes # (Auto) 0.5x10^3/uL (0.0-1.1) Eosinophils # (Auto) 0.0x10^3/uL (0.0-0.7) Basophils # (Auto) 0.0x10^3/uL (0.0-0.2) Sodium Level 139mmol/L (136-145) Potassium Level 3.9mmol/L (3.5-5.1) Chloride Level 104mmol/L (98-107) Carbon Dioxide Level 24mmol/L (21-32) Anion Gap 11 (6-14) Blood Urea Nitrogen 6mg/dL (7-20) Creatinine 0.6mg/dL (0.6-1.0) Estimated GFR (Cockcroft-Gault) 124.7 Glucose Level 130mg/dL (70-99) Calcium Level 8.2mg/dL (8.5-10.1) NAVIN TUCKER MD Jan 16, 2017 10:03
[2017-01-16 10:55] VITALS: BP 135/63
[2017-01-16] MEDS: POTASSIUM CL 20MEQ D5-0.45NACL 1,000 ML IV SCH ×2 (11:05→22:52)
[2017-01-16 15:00] VITALS: BP 128/50
[2017-01-16] MEDS: diphenhydrAMINE HCL 25 MG CAPSULE PO PRN (15:24)
[2017-01-16 19:20] VITALS: BP 123/72
[2017-01-16 23:29] VITALS: BP 107/59
[2017-01-17 03:43] VITALS: BP 113/70
[2017-01-17 03:58] LABS: BASO % 1 % (0-3); EOS % 1 % (0-3); HEMATOCRIT 30.5 % (36.0-47.0); HEMOGLOBIN 10.1 g/dL (12.0-15.5); LYMPH # 2.1 x10^3/uL (1.0-4.8); LYMPH % 39 % (24-48); MEAN CORPUSCULAR HEMOGLOBIN 33 pg (25-35); MEAN CORPUSCULAR HGB CONC 33 g/dL (31-37); MEAN CORPUSCULAR VOLUME 99 fL (79-100); MONO % 9 % (0-9); NEUT % 50 % (31-73); PLATELET COUNT 108 x10^3/uL (140-400); RED BLOOD COUNT 3.08 x10^6/uL (3.50-5.40); RED CELL DISTRIBUTION WIDTH 13.9 % (11.5-14.5); WHITE BLOOD COUNT 5.3 x10^3/uL (4.0-11.0)
[2017-01-17 04:12] LABS: CALCIUM 8.2 mg/dL (8.5-10.1); CREATININE 0.6 mg/dL (0.6-1.0); GFR 124.7; POTASSIUM 3.8 mmol/L (3.5-5.1)
[2017-01-17] MEDS: HYDROCODONE/APAP 5/325MG TABLET. PO PRN ×2 (06:56→12:32)
[2017-01-17 07:00] VITALS: BP 114/55
--- NOTE | 2017-01-17 08:58 | PDOC ---
ORTHO PROGRESS NOTES Subjective She is having some itching this morning, she feels it more on the right shoulder girdle but has a deltoid and body. Overall she feels like her pain is controlled. She did work with therapy yesterday. Vitals Vital Signs Date Time Temp Pulse Resp B/P Pulse Ox O2 Delivery O2 Flow Rate FiO2 01/17/17 07:00 96.6 64 18 114/55 96 Room Air 96.6 Labs Laboratory Tests Test 01/16/17 05:05 01/17/17 03:47 White Blood Count 5.7x10^3/uL (4.0-11.0) 5.3x10^3/uL (4.0-11.0) Red Blood Count 3.40x10^6/uL (3.50-5.40) 3.08x10^6/uL (3.50-5.40) Hemoglobin 11.2g/dL (12.0-15.5) 10.1g/dL (12.0-15.5) Hematocrit 32.8% (36.0-47.0) 30.5% (36.0-47.0) Mean Corpuscular Volume 96fL (79-100) 99fL (79-100) Mean Corpuscular Hemoglobin 33pg (25-35) 33pg (25-35) Mean Corpuscular Hemoglobin Concent 34g/dL (31-37) 33g/dL (31-37) Red Cell Distribution Width 13.9% (11.5-14.5) 13.9% (11.5-14.5) Platelet Count 133x10^3/uL (140-400) 108x10^3/uL (140-400) Neutrophils (%) (Auto) 78% (31-73) 50% (31-73) Lymphocytes (%) (Auto) 13% (24-48) 39% (24-48) Monocytes (%) (Auto) 9% (0-9) 9% (0-9) Eosinophils (%) (Auto) 0% (0-3) 1% (0-3) Basophils (%) (Auto) 0% (0-3) 1% (0-3) Neutrophils # (Auto) 4.5x10^3uL (1.8-7.7) 2.6x10^3uL (1.8-7.7) Lymphocytes # (Auto) 0.7x10^3/uL (1.0-4.8) 2.1x10^3/uL (1.0-4.8) Monocytes # (Auto) 0.5x10^3/uL (0.0-1.1) 0.5x10^3/uL (0.0-1.1) Eosinophils # (Auto) 0.0x10^3/uL (0.0-0.7) 0.0x10^3/uL (0.0-0.7) Basophils # (Auto) 0.0x10^3/uL (0.0-0.2) 0.0x10^3/uL (0.0-0.2) Sodium Level 139mmol/L (136-145) 140mmol/L (136-145) Potassium Level 3.9mmol/L (3.5-5.1) 3.8mmol/L (3.5-5.1) Chloride Level 104mmol/L (98-107) 106mmol/L (98-107) Carbon Dioxide Level 24mmol/L (21-32) 26mmol/L (21-32) Anion Gap 11 (6-14) 8 (6-14) Blood Urea Nitrogen 6mg/dL (7-20) 5mg/dL (7-20) Creatinine 0.6mg/dL (0.6-1.0) 0.6mg/dL (0.6-1.0) Estimated GFR (Cockcroft-Gault) 124.7 124.7 Glucose Level 130mg/dL (70-99) 126mg/dL (70-99) Calcium Level 8.2mg/dL (8.5-10.1) 8.2mg/dL (8.5-10.1) Laboratory Tests Test 01/17/17 03:47 White Blood Count 5.3x10^3/uL (4.0-11.0) Red Blood Count 3.08x10^6/uL (3.50-5.40) Hemoglobin 10.1g/dL (12.0-15.5) Hematocrit 30.5% (36.0-47.0) Mean Corpuscular Volume 99fL (79-100) Mean Corpuscular Hemoglobin 33pg (25-35) Mean Corpuscular Hemoglobin Concent 33g/dL (31-37) Red Cell Distribution Width 13.9% (11.5-14.5) Platelet Count 108x10^3/uL (140-400) Neutrophils (%) (Auto) 50% (31-73) Lymphocytes (%) (Auto) 39% (24-48) Monocytes (%) (Auto) 9% (0-9) Eosinophils (%) (Auto) 1% (0-3) Basophils (%) (Auto) 1% (0-3) Neutrophils # (Auto) 2.6x10^3uL (1.8-7.7) Lymphocytes # (Auto) 2.1x10^3/uL (1.0-4.8) Monocytes # (Auto) 0.5x10^3/uL (0.0-1.1) Eosinophils # (Auto) 0.0x10^3/uL (0.0-0.7) Basophils # (Auto) 0.0x10^3/uL (0.0-0.2) Sodium Level 140mmol/L (136-145) Potassium Level 3.8mmol/L (3.5-5.1) Chloride Level 106mmol/L (98-107) Carbon Dioxide Level 26mmol/L (21-32) Anion Gap 8 (6-14) Blood Urea Nitrogen 5mg/dL (7-20) Creatinine 0.6mg/dL (0.6-1.0) Estimated GFR (Cockcroft-Gault) 124.7 Glucose Level 126mg/dL (70-99) Calcium Level 8.2mg/dL (8.5-10.1) Notes She is awake and alert, sitting in bed eating breakfast. Right upper extremity is in a sling. Dressings are dry. Motor and sensation remain intact median, radial, and ulnar nerves Assessment and Plan From my standpoint, she can be discharged home. I did discuss with her that she needs to contact my office for appropriate paperwork regarding her work status. She is to be nonweightbearing right upper extremity. She will continue her rehabilitation as well. RENEE HILLS II, MD Jan 17, 2017 08:58
[2017-01-17] MEDS: THIAMINE 100 MG TABLET. PO SCH (09:03)
[2017-01-17] MEDS: FOLIC ACID 1 MG TABLET. PO SCH (09:03)
[2017-01-17] MEDS: diphenhydrAMINE HCL 25 MG CAPSULE PO PRN (09:03)
--- NOTE | 2017-01-17 09:19 | PDOC ---
PROGRESS NOTES Chief Complaint Chief Complaint Traumatic right humerus fx post fall ASSESSMENT AND PLAN: 1. R humerus fx: s/p fixation yesterday. ok to D/C from ortho standpoint 2. Pain control: ok with PO only 3. Hypokalemia: resolved. monitor 4. Alcoholism: suppl vitamins, ativan PRN for W/D prevention 5. Tobaccoism: on patch 6. Dispo: home today History of Present Illness History of Present Illness pain in shoulder/arm, asking for pain med. otherwise feels ready to go home Vitals Vitals Vital Signs Date Time Temp Pulse Resp B/P Pulse Ox O2 Delivery O2 Flow Rate FiO2 01/17/17 09:03 Room Air 01/17/17 07:00 96.6 64 18 114/55 96 96.6 Physical Exam General: Alert, Oriented X3, Cooperative Heart: Regular rate Lungs: Clear Abdomen: Normal bowel sounds, Soft, No tenderness Extremities: No edema, Other (R arm in sling) Skin: No rashes Labs LABS Laboratory Tests Test 01/17/17 03:47 White Blood Count 5.3x10^3/uL (4.0-11.0) Red Blood Count 3.08x10^6/uL (3.50-5.40) Hemoglobin 10.1g/dL (12.0-15.5) Hematocrit 30.5% (36.0-47.0) Mean Corpuscular Volume 99fL (79-100) Mean Corpuscular Hemoglobin 33pg (25-35) Mean Corpuscular Hemoglobin Concent 33g/dL (31-37) Red Cell Distribution Width 13.9% (11.5-14.5) Platelet Count 108x10^3/uL (140-400) Neutrophils (%) (Auto) 50% (31-73) Lymphocytes (%) (Auto) 39% (24-48) Monocytes (%) (Auto) 9% (0-9) Eosinophils (%) (Auto) 1% (0-3) Basophils (%) (Auto) 1% (0-3) Neutrophils # (Auto) 2.6x10^3uL (1.8-7.7) Lymphocytes # (Auto) 2.1x10^3/uL (1.0-4.8) Monocytes # (Auto) 0.5x10^3/uL (0.0-1.1) Eosinophils # (Auto) 0.0x10^3/uL (0.0-0.7) Basophils # (Auto) 0.0x10^3/uL (0.0-0.2) Sodium Level 140mmol/L (136-145) Potassium Level 3.8mmol/L (3.5-5.1) Chloride Level 106mmol/L (98-107) Carbon Dioxide Level 26mmol/L (21-32) Anion Gap 8 (6-14) Blood Urea Nitrogen 5mg/dL (7-20) Creatinine 0.6mg/dL (0.6-1.0) Estimated GFR (Cockcroft-Gault) 124.7 Glucose Level 126mg/dL (70-99) Calcium Level 8.2mg/dL (8.5-10.1) NAVIN TUCKER MD Jan 17, 2017 09:19
[2017-01-17 11:00] VITALS: BP 119/59
[2017-01-17] MEDS ORDERED: HYDR-2666 PO (12:33)
--- NOTE | 2017-01-20 21:07 | DS ---
DATE OF DISCHARGE: 01/17/2017 CHIEF COMPLAINT: Traumatic right humerus fracture status post fall. HOSPITAL COURSE: The patient is a 56-year-old -[place] woman who sustained a right humerus fracture after stumbling down her stairs. This was surgically fixed on 01/16/2017. Pain control was somewhat difficult, but she could be switched to p.o. within a couple of days. For her polysubstance abuse, she was placed on a nicotine patch as well as Ativan p.r.n. for alcohol withdrawal prevention. She did well from that standpoint as well. PHYSICAL EXAMINATION: Please refer to note from same day. DISCHARGE DATE: 01/17/2017. DISCHARGE DISPOSITION: To home. DISCHARGE CONDITION: Improved. DISCHARGE DIAGNOSES: Right humeral fracture, status post open reduction and internal fixation. DISCHARGE MEDICATIONS: Please refer to MAR. DISCHARGE INSTRUCTIONS: The patient will follow up with PCP in 1-2 weeks. NAVIN TUCKER MD DR: AMBER/nts JOB#: [id number] / [id number] ELLYN Oliveros MD
== END 2017-01-17 14:15 | disposition home or self-care (01) | DRG 493 ==
LOC: ER 20:16 → 4 NORTH 21:50
PROVIDERS: ADMIT Internal Medicine; ATTEND Internal Medicine
PROC: 0PSC06Z Reposition Right Humeral Head with Intramedullary Internal Fixation Device, Open Approach (ICD-10-PCS; principal; 2017-01-15 15:00)
DX: S42.211A Unspecified displaced fracture of surgical neck of right humerus, initial encounter for closed fracture (principal); D62 Acute posthemorrhagic anemia; E87.6 Hypokalemia; F10.20 Alcohol dependence, uncomplicated; F17.200 Nicotine dependence, unspecified, uncomplicated; M54.30 Sciatica, unspecified side; Y93.01 Activity, walking, marching and hiking; Z96.641 Presence of right artificial hip joint; W18.30XA Fall on same level, unspecified, initial encounter; Z82.49 Family history of ischemic heart disease and other diseases of the circulatory system; Y92.003 Bedroom of unspecified non-institutional (private) residence as the place of occurrence of the external cause; Z88.6 Allergy status to analgesic agent
CPT/HCPCS: 36415; 70450; 73030; 73060; 73090; 73130; 76000; 80048; 80053; 81001; 85027; 85610; 85730; 96374; C1713; G0480; G0481; J0131; J0690; J1100; J2250; J2270; J2405; J2704; J2710; J3010; J3480; J3490; J7030; Q0163; 97110; 97116; 99285-25

== ENCOUNTER → 2017-11-30 | Outpatient (CLI) | payer OTHER ==
[2017-11-30 15:19] LABS: BILIRUBIN,URINE NEGATIVE (NEG); CLARITY,URINE CLOUDY; COLOR,URINE AMBER; GLUCOSE,URINE NEGATIVE (NEG); NITRITE,URINE NEGATIVE (NEG); PH,URINE 5.5; PROTEIN,URINE >=300 mg/dL (NEG-TRACE); UROBILINOGEN,URINE 0.2 mg/dL (0.2 mg/dL)
[2017-11-30 15:35] LABS: RBC,URINE >40 /HPF (0-2); WBC,URINE >40 /HPF (0-4)
[2017-11-30 15:45] LABS: BACTERIA,URINE MODERATE /HPF (0-FEW); SQUAMOUS EPITHELIAL CELL,UR MOD /LPF
== END | disposition home or self-care (01) ==
LOC: LAB 13:49
DX: N39.0 Urinary tract infection, site not specified (principal)
CPT/HCPCS: 81001; 87086

== ENCOUNTER → 2018-11-19 | Outpatient (CLI) | payer OTHER ==
[~2018-11-19] MED LIST changes: +ASPI-612 PO; -ASPI81TA9 PO; +HYDR-2761 PO; -HYDR-2762 PO; +HYDR-2765 PO; -OMEP20TA PO; +OMEP20TA8 PO
[2018-11-19 17:14] LABS: BASO % 0 % (0-3); EOS % 1 % (0-3); HEMATOCRIT 40.2 % (36.0-47.0); HEMOGLOBIN 13.4 g/dL (12.0-15.5); LYMPH # 2.2 x10^3/uL (1.0-4.8); LYMPH % 42 % (24-48); MEAN CORPUSCULAR HEMOGLOBIN 33 pg (25-35); MEAN CORPUSCULAR HGB CONC 33 g/dL (31-37); MEAN CORPUSCULAR VOLUME 99 fL (79-100); MONO # 0.4 x10^3/uL (0.0-1.1); MONO % 8 % (0-9); NEUT # 2.6 x10^3uL (1.8-7.7); NEUT % 49 % (31-73); PLATELET COUNT 163 x10^3/uL (140-400); RED BLOOD COUNT 4.07 x10^6/uL (3.50-5.40); RED CELL DISTRIBUTION WIDTH 13.6 % (11.5-14.5); WHITE BLOOD COUNT 5.2 x10^3/uL (4.0-11.0)
== END | disposition home or self-care (01) ==
LOC: LAB 16:44
PROVIDERS: ATTEND Internal Medicine Cardiovascular Disease
DX: I38 Endocarditis, valve unspecified (principal)
CPT/HCPCS: 36415; 85025; 85651; 87040